=== PATIENT | male | born 1940 | race Two or more races ===

== ENCOUNTER 2022-05-17 13:23 | Emergency (ER) | payer OTHER ==
[~2022-05-17] VITALS: Ht 177.8 cm; Wt 76.2 kg
== END 2022-05-17 17:45 | disposition home or self-care (01) ==
LOC: ER 13:23
DX: R04.0 Epistaxis (principal)

== ENCOUNTER 2022-06-30 12:03 | Inpatient (IN) | payer OTHER ==
[~2022-06-30] VITALS: Ht 177.8 cm; Wt 83.5 kg
[2022-06-30] MEDS ORDERED: MEDROL4 MG (12:13)
[2022-06-30] MEDS ORDERED: BENZONATATE200 M1 (12:13)
--- NOTE | 2022-06-30 12:14 | NUR ---
PTE ALERTA Y ORIENTADO EN ANI CHEY ESFERAS, REFIERE RASH EN TODO EL CUERPO EL CUAL LE COMENZO HACE 2 MEREDITH APROXIMADAMENTE Y PARA EL CUAL WERNER RECIBIDO TX DIPESH REFIERE NO WERNER MISAEL. SE UBICA EN NEREYDA DE ESPERA.
--- NOTE | 2022-06-30 14:28 | NUR ---
SE ORIENTA PTE SOBRE TX A SEGUIR, EL CUAL REFIERE ENTENDER. SE COLECTAN MUESTRAS UTILIZANDO MEDIDAS ASEPTICAS
[2022-07-02] MEDS ORDERED: RAYOS5 MG PO (07:36)
== END 2022-07-03 14:01 | disposition home or self-care (01) | DRG 813 ==
LOC: ER 12:03 → MEDJ 19:20
PROVIDERS: ADMIT Internal Medicine; ATTEND Internal Medicine
PROC: CW1NLZZ Planar Nuclear Medicine Imaging of Whole Body using Gallium 67 (Ga-67) (ICD-10-PCS; principal; 2022-07-01)
DX: D69.3 Immune thrombocytopenic purpura (principal); C90.30 Solitary plasmacytoma not having achieved remission; D47.9 Neoplasm of uncertain behavior of lymphoid, hematopoietic and related tissue, unspecified; J06.9 Acute upper respiratory infection, unspecified; R59.0 Localized enlarged lymph nodes; R77.1 Abnormality of globulin; Z20.822 Contact with and (suspected) exposure to COVID-19

== ENCOUNTER 2022-07-06 11:16 | Inpatient (IN) | payer OTHER ==
[~2022-07-06] VITALS: Ht 177.8 cm; Wt 84.8 kg
[~2022-07-06 11:16] MED LIST: BENZONATATE200 M1; MEDROL4 MG; RAYOS5 MG PO
[2022-07-06] MEDS ORDERED: PANTOPRAZOLE SO40 MG PO (11:37)
[2022-07-11] MEDS ORDERED: DICLOFENAC POTA50 MG (10:37)
== END 2022-07-11 13:42 | disposition home or self-care (01) | DRG 813 ==
LOC: ER 11:16 → MEDJ 18:42 → MEDI 18:42 → MEDJ 07-09 09:55
PROVIDERS: ADMIT Internal Medicine; ATTEND Internal Medicine
PROC: B34KZZZ Ultrasonography of Bilateral Upper Extremity Arteries (ICD-10-PCS; 2022-07-06)
PROC: 30233R1 Transfusion of Nonautologous Platelets into Peripheral Vein, Percutaneous Approach (ICD-10-PCS; principal; 2022-07-07)
PROC: 079T3ZX Drainage of Bone Marrow, Percutaneous Approach, Diagnostic (ICD-10-PCS; 2022-07-08)
PROC: 07DR3ZX Extraction of Iliac Bone Marrow, Percutaneous Approach, Diagnostic (ICD-10-PCS; 2022-07-08)
PROC: BW21ZZZ Computerized Tomography (CT Scan) of Abdomen and Pelvis (ICD-10-PCS; 2022-07-08)
PROC: 0HB7XZX Excision of Abdomen Skin, External Approach, Diagnostic (ICD-10-PCS; 2022-07-08)
PROC: 8E0ZXY6 Isolation (ICD-10-PCS; 2022-07-09)
PROC: BB24ZZZ Computerized Tomography (CT Scan) of Bilateral Lungs (ICD-10-PCS; 2022-07-09)
DX: D69.3 Immune thrombocytopenic purpura (principal); E85.81 Light chain (AL) amyloidosis; J98.11 Atelectasis; J90 Pleural effusion, not elsewhere classified; I77.6 Arteritis, unspecified; R59.0 Localized enlarged lymph nodes; R23.3 Spontaneous ecchymoses; R60.0 Localized edema; R14.0 Abdominal distension (gaseous); I10 Essential (primary) hypertension

== ENCOUNTER 2022-07-17 12:51 | Emergency (ER) | payer OTHER ==
[~2022-07-17] VITALS: Ht 177.8 cm; Wt 83.5 kg
[~2022-07-17 12:51] MED LIST changes: +DICLOFENAC POTA50 MG; +PANTOPRAZOLE SO40 MG PO
[2022-07-17] MEDS ORDERED: PEPCID20 MG PO (12:57)
[2022-07-17] MEDS ORDERED: NYSTATIN500000 UNI PO (12:58)
== END 2022-07-17 18:17 | disposition home or self-care (01) ==
LOC: ER 12:51
DX: R21 Rash and other nonspecific skin eruption (principal)

== ENCOUNTER 2023-05-17 12:07 | Emergency (ER) | payer OTHER ==
[~2023-05-17] VITALS: Ht 177.8 cm; Wt 74.8 kg
[~2023-05-17 12:07] MED LIST changes: +NYSTATIN500000 UNI PO; +PEPCID20 MG PO
[2023-05-17 15:16] LABS: ABG PH 7.385 (7.35-7.45); ABG PO2 92.1 mmHg (80-100); ABG pCO2 41.3 mmHg (35-45); BASE EXCESS -0.9 mmol/l; BICARBONATE 24.1 mmol/l (23-25); SaO2 96.9 %; Tco2 25.4 mmol/l; allen test SATISFACTORY; o2 32 %; puncture site RADIAL RIGHT
[2023-05-17 15:30] LABS: HEMATOCRIT 43.9 % (39.0-48.0); HEMOGLOBIN 14.9 g/dL (13-16.00); MEAN CELL VOLUME 87.4 fL (80.0-100.00); MEAN CORPUSCULAR HEMOGLOBIN 29.7 pg (27.00-32.0); MEAN CORPUSCULAR HGB CONC 33.9 g/dl (32.0-36.0); PLATELET COUNT 144 K/uL (150-450); RED BLOOD COUNT 5.02 M/uL (4.00-6.00); RED CELL DISTRIBUTION WIDTH 14.3 % (11.5-14.5)
[2023-05-17 15:55] LABS: ALBUMIN 3.8 gm/dL (3.4-5.0); BILIRUBIN TOTAL 0.65 mg/dL (0.3-1.2); CREATININE SERUM 0.86 mg/dL (0.70-1.30); GFR 84.52; GLOBULINA 4.4 G/DL (2.4-3.5); POTASSIUM 3.5 mEq/L (3.5-5.1); TOTAL PROTEIN 8.2 gm/dL (6.4-8.2)
[2023-05-17 17:08] LABS: PH,URINE 5.5 (5.0-8.0); URINE APPEARANCE Clear; URINE BILIRRUBIN Negative (NEGATIVE); URINE BLOOD Negative; URINE COLOR Yellow; URINE GLUCOSE Negative (NEGATIVE); URINE LEUKOCYTE Negative; URINE NITRATE Negative; URINE PROTEIN 30 (NEGATIVE)
[2023-05-17 17:13] LABS: URINE BACTERIA 6.2 uL (0.0-1933); URINE EPITHELIAL CELLS 2.1 uL (0.0-38.8); URINE RBC 5.7 uL (0.0-20.8); URINE WBC 5.8 uL (0.0-23.2)
== END 2023-05-17 16:59 | disposition home or self-care (01) ==
LOC: ER 12:08
PROVIDERS: General Practice
DX: J98.01 Acute bronchospasm (principal); R05.9 Cough, unspecified; Z20.822 Contact with and (suspected) exposure to COVID-19